=== PATIENT | male | born 1980 | race Two or more races ===

== ENCOUNTER 2016-11-20 19:58 | Emergency (ER) | payer BC ==
[~2016-11-20] VITALS: Ht 180.3 cm; Wt 82.6 kg
[2016-11-20] MEDS ORDERED: IBUPROFEN 800 MG TABLET PO ONE (21:45)
[2016-11-20] MEDS ORDERED: IBUPROFEN 800 MG TABLET ONE (22:00)
--- NOTE | 2016-11-20 23:06 | NUR ---
Patient discharged to home in stable conditon. Written and verbal after care instructions given. Patient verbalizes understanding of instructions.
== END 2016-11-20 23:07 | disposition home or self-care (01) ==
LOC: ER 19:58
DX: S39.012A Strain of muscle, fascia and tendon of lower back, initial encounter (principal); S13.4XXA Sprain of ligaments of cervical spine, initial encounter; V29.9XXA Motorcycle rider (driver) (passenger) injured in unspecified traffic accident, initial encounter; Y93.89 Activity, other specified; Y92.413 State road as the place of occurrence of the external cause; Y99.9 Unspecified external cause status
CPT/HCPCS: 72125; 72131; 99284; A4663